=== PATIENT | female | born 1990 | race Hispanic/Latino ===

== ENCOUNTER 2020-08-28 18:00 | Emergency (ER) | payer MEDICAID | END 2020-08-28 18:44 | disposition home or self-care (01) | LOC: EDH 18:00 | DX: U07.1 COVID-19 (principal); J12.89 Other viral pneumonia; F41.9 Anxiety disorder, unspecified; R06.00 Dyspnea, unspecified; Z98.890 Other specified postprocedural states | CPT/HCPCS: 99281 ==